=== PATIENT | female | born 1995 | race Two or more races ===

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

== ENCOUNTER 2018-06-13 13:51 | Emergency (ER) | payer MEDICAID, OTHER ==
[~2018-06-13] VITALS: Ht 167.6 cm; Wt 65.8 kg
[~2018-06-13 13:51] MED LIST: CIPR-262 PO
--- NOTE | 2018-06-13 14:38 | NUR ---
PT WALKED INTO EMERGENCY ROOM WITH C/C OF C/O N/V, MIGRANE, DIARRHEA x 4 DAYS
[2018-06-13 14:47] LABS: APPEARANCE,URINE Cloudy (CLEAR); BILIRUBIN,URINE Negative (NEGATIVE); BLOOD, URINE Negative Ery/uL (NEGATIVE); COLOR,URINE Yellow (YELLOW); KETONES,URINE Negative (NEGATIVE); LEUKOCYTE ESTERASE ,URINE Small (NEGATIVE); NITRITE, URINE Negative (NEGATIVE); PROTEIN,URINE 30 mg/dl (NEGATIVE); UGLUCOSE Negative (NEGATIVE); UROBILINOGEN,URINE 0.2 EU/dL (0.2)
[2018-06-13 14:48] LABS: PH,URINE >9.0 (5.0-8.0)
[2018-06-13] MEDS ORDERED: METOCLOPRAMIDE HCL 10 MG/2 ML VIAL ONE (14:50)
[2018-06-13] MEDS ORDERED: AZITHROMYCIN 250 MG TABLET ONE (14:50)
[2018-06-13] MEDS ORDERED: KETOROLAC TROMETHAMINE INJ 30 MG/ML VIAL ONE (14:50)
[2018-06-13] MEDS ORDERED: diphenhydrAMINE HCL ELIX 25 MG/10 ML UDC ONE (14:50)
[2018-06-13] MEDS ORDERED: diphenhydrAMINE HCL 50 MG/ML VIAL ONE (14:53)
[2018-06-13] MEDS ORDERED: CEFTRIAXONE 500 MG VIAL ONE (14:56)
[2018-06-13] MEDS ORDERED: AZITHROMYCIN 250 MG TABLET PO ONE (15:00)
[2018-06-13] MEDS ORDERED: METOCLOPRAMIDE HCL 10 MG/2 ML VIAL IV ONE (15:00)
[2018-06-13] MEDS ORDERED: IV NS 0.9% 1,000 ML BAG IV ONE (15:00)
[2018-06-13] MEDS ORDERED: CEFTRIAXONE 500 MG VIAL IM ONE (15:00)
[2018-06-13] MEDS ORDERED: KETOROLAC TROMETHAMINE INJ 30 MG/ML VIAL IV ONE (15:00)
[2018-06-13] MEDS ORDERED: diphenhydrAMINE HCL 50 MG/ML VIAL IV ONE (15:00)
[2018-06-13 15:17] LABS: RBC,URINE 0-2 /HPF (0-2)
[2018-06-13 15:18] LABS: BACTERIA,URINE Moderate /HPF (None Seen); SQUAMOUS EPITHELIAL CELL,UR Moderate /HPF (None Seen); WBC,URINE 15-25 /HPF (0-3)
--- NOTE | 2018-06-13 17:16 | NUR ---
PT DISCHARGED HOME WITH MON PT ABLE TO WALK WITH STEADY GAIT TO ER WAITING ROOM PIV REMOVED WITH TIP INTACT ACI AND PRESCRIPTION GIVEN WILL FOLLOW UP WITH PCP
[2018-06-13 17:18] VITALS: BP 110/61
== END 2018-06-13 17:18 | disposition home or self-care (01) ==
LOC: ER 13:54
DX: R51 Headache (principal); F10.10 Alcohol abuse, uncomplicated; R19.7 Diarrhea, unspecified; F17.200 Nicotine dependence, unspecified, uncomplicated; Z20.2 Contact with and (suspected) exposure to infections with a predominantly sexual mode of transmission; Y90.9 Presence of alcohol in blood, level not specified
CPT/HCPCS: 81000-TC; 84703-TC; 87086-TC; 87186-TC; 87491; 87591; J0696; J1200; J1885; J2765; J7030; Q0163